=== PATIENT | male | born 1960 | race Native Hawaiian/Other Pacific Islander ===

== ENCOUNTER 2017-04-28 08:42 | Day surgery (SDC) | payer OTHER ==
[2017-04-26 13:12] VITALS: BMI 28.8
[2017-04-28] MEDS ORDERED: Lidocaine 4% (Laryng-O-Jet) Kit MM ONE (10:04)
[2017-04-28] MEDS ORDERED: Midazolam 2 MG/2 ML VIAL ONE (10:35)
[2017-04-28] MEDS ORDERED: Phenylephrine 10 mg/ml Inj ONE (10:42)
[2017-04-28] MEDS ORDERED: ePHEDrine 50 mg/ml Inj ONE (11:12)
[2017-04-28] MEDS ORDERED: Etomidate 20 mg/10ml Inj IV ONE (11:12)
[2017-04-28] MEDS ORDERED: Lidocaine 2% Inj (20ml) ONE (11:12)
[2017-04-28] MEDS ORDERED: Esmolol 100 mg/10ml Inj IV ONE (11:12)
[2017-04-28] MEDS ORDERED: Vasopressin 20 Units/ml Inj ONE (11:13)
[2017-04-28 15:19] VITALS: O2SAT 100
[2017-04-28 17:28] VITALS: BP 104/61; PULSE 57; RESP 20; TEMP 98
--- NOTE | 2017-05-06 21:27 | CARD ---
APPROVED REPORT EXAM: Transesophageal echocardiogram with color flow Doppler and Synchronized Cardioversion. INDICATION Atrial Fibrillation Mitral Valve E/A ratio0.0 TDI E/Lateral E'0.0E/Medial E'0.0 Reason For Test : Rule out cardiac source of emboli. PROCEDURE After obtaining informed consent, patient underwent transesophageal echo in the [employer]. Type of Sedation : Conscious Sedation Sedation was provided by anesthesiologist. Sedation was achieved with intravenously. The LUZ was performed complications. Throughout the procedure, the blood pressure, pulse oximetry, cardiac rhythm, and rate were monitored. The patient tolerated the procedure without adverse effects. Recovery from conscious sedation was uneventful and vital signs were stable. LEFT VENTRICLE The Left Ventricle is moderately dilated. Left ventricle systolic function is severely impaired. The Ejection Fraction is <25%. No left ventricle thrombus noted on this study. There is no ventricular septal defect visualized. RIGHT VENTRICLE The right ventricle is normal size. Systolic function is mildly to moderately reduced. ICD wire visible ATRIA The left atrium is moderately dilated. The right atrium is mildly dilated. Inter atrial septum intact, TREVA free of thrombus AORTIC VALVE The aortic valve is normal in structure. There is mild aortic regurgitation. There is no aortic valvular stenosis. There is no aortic valvular vegetation. MITRAL VALVE The mitral valve is normal in structure. There is no mitral valve stenosis. Mitral regurgitation is moderate to severe. TRICUSPID VALVE The tricuspid valve is normal in structure. There is mild tricuspid regurgitation. There is no tricuspid valve prolapse or vegetation. There is no tricuspid valve stenosis. PULMONIC VALVE The pulmonary valve is normal in structure. GREAT VESSELS The aortic root is normal in size. <Conclusion> Left ventricle systolic function is severely impaired. The Ejection Fraction is <25%. No left ventricle thrombus noted on this study. Inter atrial septum intact, TREVA free of thrombus Mitral regurgitation is moderate to severe. The aortic root is normal in size.
== END 2017-04-28 17:10 | disposition home or self-care (01) ==
LOC: C.CATHLAB 08:42
PROVIDERS: ATTEND Internal Medicine Cardiovascular Disease
DX: I48.91 Unspecified atrial fibrillation (principal); R06.00 Dyspnea, unspecified
CPT/HCPCS: 92960; 93312; 94770; J2250; J2370